=== PATIENT | male | born 1975 | race Caucasian/White ===

== ENCOUNTER 2023-04-10 10:05 | Day surgery (SDC) | payer OTHER, SELFPAY ==
[2023-03-19 08:29] VITALS: BMI 25.5
--- NOTE | 2023-04-09 17:06 | P.PNAN_ITS ---
Anes - Initial Pre Proc Eval Procedure: Operation Date: 04/10/23 13:30 Proposed Procedures p Screening Colonoscopy - Duong Whitman MD Date/Time: 04/09/23 17:06 Surgeon: Duong Whitman MD Pre Op Diagnosis: Neoplasm Screening Patient Data Age: 47 Gender: M Height: 1.73 m Weight: 76.204 kg Allergies Allergy/AdvReac Type Severity Reaction Status Date / Time No Known Allergies Allergy Verified 04/10/23 10:56 Home Medications Medication Instructions Recorded Confirmed Type hydrocortisone-pramoxine 1 %-1 % 1 applic RECTAL QID PRN 03/12/23 04/10/23 Rx rectal cream hemorrhoids #30 grams Fiber Supplement 1 cap PO DAILY 03/31/23 04/10/23 History atorvastatin 10 mg tablet 10 mg PO DAILY 03/31/23 04/10/23 History levothyroxine 112 mcg tablet 112 mcg PO DAILY 03/31/23 04/10/23 History testosterone cypionate 200 mg/mL See Rx Instructions .Route .COMPLEX 03/31/23 04/10/23 History intramuscular oil Patient hx anesthesia problems: none Family hx anesthesia problems: none Results Review: All pre-operative results and documents have been reviewed as part of the pre- operative evaluation. [facility] Past Medical History Medical History (Updated 04/10/23 @ 12:03 by Duong Whitman MD) Colon cancer screening Hyperlipidemia Hypothyroidism Low testosterone in male RICCI (obstructive sleep apnea) mild, no CPAP required Family History Family History (Updated 03/12/23 @ 14:46 by Kristine Willis MA) Father Alcoholism Heart disease Sibling Thyroid condition Grandparent Diabetes mellitus Hypertension Heart disease Social History Social History (Updated 03/12/23 @ 14:45 by Kristine Willis MA) Smoking status: Never smoker Alcohol intake: current Drinks per week: 2 Substance use: never Substance use type: does not use Lack of Transportation: No Lack of Food: Never True Current Housing: I Have Housing Concerned About Future Housing: No Difficulty Paying Gas/Electric Bills: No Difficulty Paying for Meds: No Currently Unemployed: No Education: Decline to Answer Difficulty w/ Childcare or Family Care: No Living arrangements: with family Occupation/Education: occupation Gender identity (if verbalized by the patient): Male Spiritual care concerns: No Agree to blood products: Yes Anes - Eval Final PreProcedure Day of Procedure 04/09/23 17:06 Patient weight: overweight Heart: regular rate and rhythm Lungs: clear to auscultation Airway: Mallampati scale class II Neurological: alert and oriented Last oral intake: >/= 8 hours ASA classification: III Emergent: no Anesthetic plan: proceed Anesthesia type and monitoring: general GIVS and standard monitoring Results Review: All pre-operative results and documents have been reviewed as part of the pre- operative evaluation. Informed Consent: The patient's anesthetic plan and its attendant risks and benefits were discussed with the patient/family/POA. Questions were solicited and answers provided to the satisfaction of the patient/family/POA.
[2023-04-10 11:06] VITALS: BP 127/81; PULSE 54; RESP 16; TEMP 36.8; O2SAT 99; BMI 25.2
[2023-04-10] MEDS: LACTATED RINGERS 1,000 ML 150 ML IV CONT (11:20)
--- NOTE | 2023-04-10 12:02 | PM.HPGS ---
History of Present Illness History of Present Illness Consent: Risks, benefits, and alternatives have been discussed and questions answered. Patient agrees to proceed with procedure. Chief complaint: Neoplasm Screening Narrative: Maury Caraballo is a 47 year old male here for first screening colonoscopy Review of Systems Constitutional: Constitutional: Denies headache(s) and Denies weakness Eyes: Eyes: Denies blurry vision ENT: Reports Normal hearing present, Denies headache(s) and Denies neck pain Cardiovascular: Cardiovascular: Denies chest pain and Denies dyspnea Respiratory: Respiratory: Denies dyspnea Gastrointestinal: Gastrointestinal: Reports no additional gastrointestinal complaints Genitourinary: Genitourinary: Denies dysuria Musculoskeletal: Musculoskeletal: Denies neck pain Integumentary/Breasts: Skin/Breast: Denies dry skin Neurologic: Reports Normal hearing present, Denies headache(s) and Denies weakness Psychiatric: Psychiatric: Denies anxiety Endocrine: Endocrine: Denies change in body appearance Hematologic/Lymphatic: Hematologic/Lymphatic: Denies easy bleeding Allergic/Immunologic: Allergic/Immunologic: Denies urticaria PMF Past Medical History Medical History (Updated 04/10/23 @ 12:03 by Duong Whitman MD) Colon cancer screening Hyperlipidemia Hypothyroidism Low testosterone in male RICCI (obstructive sleep apnea) mild, no CPAP required Family History Family History (Updated 03/12/23 @ 14:46 by Kristine Willis MA) Father Alcoholism Heart disease Sibling Thyroid condition Grandparent Diabetes mellitus Hypertension Heart disease Social History Social History (Updated 03/12/23 @ 14:45 by Kristine Willis MA) Smoking status: Never smoker Alcohol intake: current Drinks per week: 2 Substance use: never Substance use type: does not use Lack of Transportation: No Lack of Food: Never True Current Housing: I Have Housing Concerned About Future Housing: No Difficulty Paying Gas/Electric Bills: No Difficulty Paying for Meds: No Currently Unemployed: No Education: Decline to Answer Difficulty w/ Childcare or Family Care: No Living arrangements: with family Occupation/Education: occupation Gender identity (if verbalized by the patient): Male Spiritual care concerns: No Agree to blood products: Yes Meds Home Medications and Allergies Home Medications Medication Instructions Recorded Confirmed Type hydrocortisone-pramoxine 1 %-1 % 1 applic RECTAL QID PRN 03/12/23 04/10/23 Rx rectal cream hemorrhoids #30 grams Fiber Supplement 1 cap PO DAILY 03/31/23 04/10/23 History atorvastatin 10 mg tablet 10 mg PO DAILY 03/31/23 04/10/23 History levothyroxine 112 mcg tablet 112 mcg PO DAILY 03/31/23 04/10/23 History testosterone cypionate 200 mg/mL See Rx Instructions .Route .COMPLEX 03/31/23 04/10/23 History intramuscular oil Allergies Allergy/AdvReac Type Severity Reaction Status Date / Time No Known Allergies Allergy Verified 04/10/23 10:56 Vital Signs Vital Signs - 24 hr 04/10/23 11:06 Temperature 98.2 F Pulse Rate 54 L Respiratory Rate 16 Blood Pressure 127/81 Pulse Oximetry 99 Oxygen Delivery Room Air Exam Const: General: comfortable and no acute distress HENMT: Face/Nose/Sinus: Normal nares present Eyes: General: appearance normal, both eyes and all related structures Neck: Neck: no JVD Resp: Auscultation: clear to auscultation bilaterally Cardio: Rate: regular rate Rhythm: regular rhythm GI: Inspection: non-distended GI Palp: Yes Soft to palpation Skin: General skin exam: normal color Neuro: General: gait normal Speech: normal speech Extrem: General: normal to inspection Psych: Mental Status: mental status grossly normal Assessment and Plan Assessment and plan (1) Colon cancer screening: Code(s): Z12.11 - Encounter for screening for maligna
[2023-04-10 12:24] VITALS: BP 97/58; PULSE 66; RESP 16; O2SAT 98
[2023-04-10 12:34] VITALS: BP 109/66; PULSE 61; RESP 15; O2SAT 99
[2023-04-10 12:44] VITALS: BP 114/63; PULSE 64; RESP 16; O2SAT 100
--- NOTE | 2023-04-10 13:00 | WPDANESPN ---
Anes - Prog Note Post-Op Date/Time: 04/10/23 13:00 Cardiovascular status: normal Respiratory status: normal Airway patency: baseline Mental status: baseline Post-Op hydration status: normal Vital Signs: Last Vital Signs Temp 36.8 C 04/10/23 11:06 Pulse 64 04/10/23 12:44 Resp 16 04/10/23 12:44 BP 114/63 04/10/23 12:44 Pulse Ox 100 04/10/23 12:44 O2 Del Method Room Air 04/10/23 12:44 Pain Score (VAS): 0 I/O: Intake & Output 04/09/23 04/10/23 04/10/23 23:59 07:59 15:59 Intake Total 820 Balance 820 Post-procedural complaints: none Patient Feedback: Patient satisfied with anesthetic care. Other Findings: Patient vital signs back to baseline. Patient denies nausea and vomiting. Patient's pain under control. Patient OK for discharge.
== END 2023-04-10 12:58 | disposition home or self-care (01) ==
PROVIDERS: PCP Family Medicine; Visit Provider Internal Medicine Gastroenterology
PROC: 0DJD8ZZ Inspection of Lower Intestinal Tract, Via Natural or Artificial Opening Endoscopic (ICD-10-PCS; CPT 45378; principal; 2023-04-10 13:30)
DX: Z12.11 Encounter for screening for malignant neoplasm of colon (principal); K64.8 Other hemorrhoids
CPT/HCPCS: 45378